=== PATIENT | male | born 1970 | race Caucasian/White ===

== ENCOUNTER 2024-02-25 09:36 | Emergency (ER) | payer BC, OTHER ==
[2024-02-25 10:59] VITALS: BP 137/85; PULSE 84
== END 2024-02-25 10:57 | disposition home or self-care (01) ==
LOC: JD.ED 09:36
DX: K42.0 Umbilical hernia with obstruction, without gangrene (principal)
CPT/HCPCS: 99283

== ENCOUNTER 2024-02-26 10:18 | Inpatient (IN) | payer BC ==
[2024-02-26] MEDS ORDERED: Naloxone 0.4 MG/ML SDV IVPUSH PRN (11:31)
[2024-02-26] MEDS ORDERED: Iopamidol 755 Mg/ML 100 ML Bottle IVPUSH ONE ×2 (11:37→11:38)
[2024-02-26] MEDS ORDERED: Sodium Chloride 0.9% 100 ML IV SCH (11:45)
[2024-02-26] MEDS: Iopamidol 612 MG/ML 100 ML Bottle IVPUSH ONE (11:48)
[2024-02-26] MEDS: Sodium Chloride 0.9% 10 ML Syringe FLUSH PRN ×3 (11:48→14:00)
[2024-02-26] MEDS: Lactated Ringers 1,000 ML IV ONE (12:28)
[2024-02-26] MEDS: Ondansetron 4 MG/2 ML SDV IVPUSH ONE (12:29)
[2024-02-26] MEDS: fentaNYL 100 MCG/2 ML SDV IVPUSH ONE (12:29)
[2024-02-26 12:30] LABS: BASOPHILS PERCENT AUTO 0.2 % (0.0-1.0); EOSINOPHILS ABSOLUTE AUTO 0.1 K/mm3 (0.0-0.4); EOSINOPHILS PERCENT AUTO 0.5 % (0.0-6.0); HEMATOCRIT 52.7 % (42.0-52.0); HEMOGLOBIN 18.1 gm/dl (14.0-18.0); IMMATURE GRAN ABSOLUTE AUTO 0.03 K/mm3 (0.00-0.05); IMMATURE GRAN PERCENT AUTO 0.3 % (0.0-0.4); LYMPHOCYTES PERCENT AUTO 18.2 % (24.0-44.0); MEAN CORPUSCULAR HGB CONC 34.3 g/dl (32.0-36.0); MEAN CORPUSCULAR VOLUME 90.2 fl (83.0-99.0); MEAN PLATELET VOLUME 9.3 fl (9.4-12.4); NEUTROPHILS PERCENT AUTO 71.8 % (41.0-71.0); PLATELET COUNT,PLT 246 K/mm3 (150-400); RED BLOOD CELL COUNT 5.84 M/mm3 (4.52-5.90); WHITE BLOOD CELL COUNT,WBC 11.08 K/mm3 (3.9-11.3)
[2024-02-26 13:02] LABS: LACTIC ACID 1.3 mmol/L (0.4-2.0)
[2024-02-26 13:09] LABS: A/G RATIO 0.9 (1-2); ALBUMIN 3.9 g/dl (3.4-5.0); ANION GAP 14.4 (5-15); BILIRUBIN TOTAL 0.9 mg/dL (0.2-1.0); CALCIUM 9.1 mg/dL (8.5-10.1); CREATININE 1.5 mg/dL (0.7-1.3); EST CRCL DRUG DOSING (CG) 59.48 mL/min; POTASSIUM,K 3.4 mEq/L (3.5-5.1); PROTEIN TOTAL,TP 8.2 g/dl (6.4-8.2)
[2024-02-26 13:42] LABS: APPEARANCE,URINE CLEAR (Clear); BILIRUBIN,URINE NEGATIVE (Negative); COLOR,URINE YELLOW (Yellow); GLUCOSE,URINE NEGATIVE (Negative); KETONES,URINE NEGATIVE (Negative); LEUKOCYTE ESTERASE,URINE NEGATIVE (Negative); NITRITE,URINE NEGATIVE (Negative); OCCULT BLOOD,URINE TRACE-INTACT (Negative); PROTEIN,URINE TRACE (Negative)
[2024-02-26] MEDS ORDERED: Sodium Chloride 0.9% 1,000 ML IV SCH ×2 (13:45→20:45)
[2024-02-26] MEDS: Benzocaine 20% Topical Spray UD MUCMEM ONE (13:58)
[2024-02-26] MEDS: Sodium Chloride 0.9% 1,000 ML IV SCH ×2 (13:59)
[2024-02-26 14:01] LABS: BACTERIA,URINE RARE /hpf (FEW); MUCUS,URINE NOT SEEN /hpf (FEW); RBC,URINE 0-5 /hpf (0-5); SQUAMOUS EPITHELIAL CELLS,UR 0-5 /hpf (0-5); WBC,URINE 0-5 /hpf (0-5)
[2024-02-26] MEDS ORDERED: Lidocaine 2% 20 ML MDV ONE (14:14)
[2024-02-26] MEDS ORDERED: Ketorolac 15 MG/ML SDV ONE ×2 (14:28→20:35)
[2024-02-26] MEDS ORDERED: Succinylcholine 200 MG/10 ML MDV ONE (14:28)
[2024-02-26] MEDS ORDERED: Ondansetron 4 MG/2 ML SDV ONE (14:28)
[2024-02-26] MEDS ORDERED: Lidocaine 1% 5 ML VIAL ONE (14:28)
[2024-02-26] MEDS ORDERED: Rocuronium 50 MG/5 ML Vial ONE ×3 (14:28→17:36)
[2024-02-26] MEDS ORDERED: fentaNYL 100 MCG/2 ML SDV ONE (14:30)
[2024-02-26] MEDS ORDERED: Propofol 200 MG/20 ML SDV ONE (14:31)
[2024-02-26] MEDS ORDERED: Midazolam 1 MG/ML 2 ML SDV ONE (14:36)
[2024-02-26] MEDS ORDERED: ceFAZolin 2 GM Vial ONE (15:15)
[2024-02-26] MEDS ORDERED: fentaNYL 250 MCG/5 ML SDV ONE ×2 (15:22→17:14)
[2024-02-26] MEDS ORDERED: HYDROmorphone 0.5 MG/0.5 ML Syringe ONE ×4 (15:24→16:40)
[2024-02-26] MEDS ORDERED: dexmedeTOMIDine HCl 200 MCG/2 ML SDV ONE (15:41)
[2024-02-26] MEDS: Ropivacaine 0.5% 5 MG/ML 30 ML SDV ONE (16:00)
[2024-02-26] MEDS ORDERED: Lactated Ringers 1,000 ML ONE ×3 (17:45→20:38)
[2024-02-26] MEDS ORDERED: Sugammadex Sodium 200 MG/2 ML VIAL IV ONE (19:06)
[2024-02-26] MEDS ORDERED: HYDROmorphone 0.5 MG/0.5 ML Syringe IVPUSH PRN (20:51)
[2024-02-26] MEDS: fentaNYL 100 MCG/2 ML SDV IVPUSH PRN (21:05)
[2024-02-26] MEDS ORDERED: Furosemide 40 MG/4 ML VIAL IVPUSH SCH (23:00)
[2024-02-26] MEDS: Albumin 25% 25 GM in Premix Bag 1 BAG IV SCH (23:01)
[2024-02-26] MEDS: Pantoprazole 40 MG in Sodium Chloride 0.9% 100 ML IV SCH (23:01)
[2024-02-26] MEDS: Ondansetron 4 MG/2 ML SDV IVPUSH PRN (23:59)
[2024-02-26] MEDS: Ketorolac 30 MG/ML SDV IVPUSH PRN (23:59)
[2024-02-26] MEDS: Pantoprazole 40 MG Vial IV SCH (23:59)
[2024-02-27] MEDS: Albumin 25% 25 GM in Premix Bag 1 BAG IV SCH (00:01)
[2024-02-27] MEDS: Furosemide 20 MG/2 ML VIAL IVPUSH SCH (00:01)
[2024-02-27] MEDS: Heparin Sodium 5,000 Units/ML Vial SUBCUT SCH (00:13)
[2024-02-27] MEDS: Sodium Chloride 0.9% 1,000 ML IV SCH (01:09)
[2024-02-27] MEDS: Piperacillin/Tazobactam 4.5 GM in Sodium Chloride 0.9% 100 ML IV SCH (01:09)
[2024-02-27 04:52] LABS: BASOPHILS ABSOLUTE AUTO 0.1 K/mm3 (0.0-0.2); BASOPHILS PERCENT AUTO 0.6 % (0.0-1.0); EOSINOPHILS PERCENT AUTO 0.1 % (0.0-6.0); HEMATOCRIT 45.8 % (42.0-52.0); IMMATURE GRAN ABSOLUTE AUTO 0.02 K/mm3 (0.00-0.05); IMMATURE GRAN PERCENT AUTO 0.2 % (0.0-0.4); LYMPHOCYTES ABSOLUTE AUTO 0.8 K/mm3 (1.0-4.8); LYMPHOCYTES PERCENT AUTO 9.4 % (24.0-44.0); MEAN CORPUSCULAR HEMOGLOBIN 30.3 pg (28.0-32.0); MEAN CORPUSCULAR HGB CONC 32.8 g/dl (32.0-36.0); MEAN CORPUSCULAR VOLUME 92.5 fl (83.0-99.0); MEAN PLATELET VOLUME 9.4 fl (9.4-12.4); MONOCYTES ABSOLUTE AUTO 0.6 K/mm3 (0.0-0.8); MONOCYTES PERCENT AUTO 6.9 % (0.0-8.0); NEUTROPHILS ABSOLUTE AUTO 7.3 K/mm3 (1.8-7.7); NEUTROPHILS PERCENT AUTO 82.8 % (41.0-71.0); PLATELET COUNT,PLT 180 K/mm3 (150-400); RED BLOOD CELL COUNT 4.95 M/mm3 (4.52-5.90); WHITE BLOOD CELL COUNT,WBC 8.86 K/mm3 (3.9-11.3)
[2024-02-27 05:45] LABS: ANION GAP 12.8 (5-15); BUN/CREATININE RATIO 16.7 (14-18); CREATININE 1.5 mg/dL (0.7-1.3); EST CRCL DRUG DOSING (CG) 59.48 mL/min; MAGNESIUM 1.7 mg/dL (1.8-2.4); PHOSPHORUS 4.3 mg/dL (2.6-4.7); POTASSIUM,K 3.8 mEq/L (3.5-5.1)
[2024-02-27 06:01] LABS: CALCIUM 7.6 mg/dL (8.5-10.1)
[2024-02-27 06:49] LABS: SLIDE REVIEW ABNORMAL SMEAR
[2024-02-27] MEDS ORDERED: Albumin 25% 50 GM in Premix Bag 1 BAG IV SCH (09:13)
[2024-02-27] MEDS: AA 4.25%/D5W/Calcium/Lytes 1,000 ML IV SCH (11:50)
[2024-02-27] MEDS: Bisacodyl 10 MG Supp RECTAL PRN (12:00)
[2024-02-27] MEDS ORDERED: Calcium Gluconate 10% 1 GM/10 ML SDV IV ONE (12:00)
[2024-02-27] MEDS: AA 5%/Calcium/D20W/Lytes 1,000 ML IV SCH (12:49)
[2024-02-27] MEDS ORDERED: Magnesium Sulfate (4.06 MEQ/ML) 5 GM/10 ML SDV IV ONE (13:00)
[2024-02-27] MEDS: Magnesium Sulfate/Water 2 GM in Premix Bag 1 BAG IV ONE (14:42)
[2024-02-27] MEDS: Calcium Gluconate 1 GM in Sodium Chloride 0.9% 100 ML IV ONE (14:42)
[2024-02-27] MEDS: Acetaminophen 325 MG/10.15 ML PO PRN (14:53)
[2024-02-27] MEDS: Albumin 25% 50 GM in Premix Bag 1 BAG IV SCH (17:06)
[2024-02-27] MEDS: Misoprostol 200 MCG Tab PO SCH (21:24)
[2024-02-27] MEDS: Albumin 25% 200 ML ONE (21:25)
[2024-02-28] MEDS: HYDROmorphone 0.5 MG/0.5 ML Syringe IVPUSH PRN (01:33)
[2024-02-28 05:52] LABS: BASOPHILS PERCENT AUTO 0.3 % (0.0-1.0); EOSINOPHILS PERCENT AUTO 0.5 % (0.0-6.0); HEMATOCRIT 34.9 % (42.0-52.0); HEMOGLOBIN 11.8 gm/dl (14.0-18.0); IMMATURE GRAN ABSOLUTE AUTO 0.02 K/mm3 (0.00-0.05); IMMATURE GRAN PERCENT AUTO 0.3 % (0.0-0.4); LYMPHOCYTES ABSOLUTE AUTO 0.8 K/mm3 (1.0-4.8); LYMPHOCYTES PERCENT AUTO 9.7 % (24.0-44.0); MEAN CORPUSCULAR HEMOGLOBIN 31.2 pg (28.0-32.0); MEAN CORPUSCULAR HGB CONC 33.8 g/dl (32.0-36.0); MEAN CORPUSCULAR VOLUME 92.3 fl (83.0-99.0); MEAN PLATELET VOLUME 9.4 fl (9.4-12.4); MONOCYTES ABSOLUTE AUTO 0.3 K/mm3 (0.0-0.8); MONOCYTES PERCENT AUTO 3.7 % (0.0-8.0); NEUTROPHILS ABSOLUTE AUTO 6.7 K/mm3 (1.8-7.7); NEUTROPHILS PERCENT AUTO 85.5 % (41.0-71.0); PLATELET COUNT,PLT 137 K/mm3 (150-400); RED BLOOD CELL COUNT 3.78 M/mm3 (4.52-5.90); WHITE BLOOD CELL COUNT,WBC 7.84 K/mm3 (3.9-11.3)
[2024-02-28 06:06] LABS: ANION GAP 12.2 (5-15); BUN/CREATININE RATIO 18.5 (14-18); CALCIUM 8.4 mg/dL (8.5-10.1); CREATININE 1.3 mg/dL (0.7-1.3); EST CRCL DRUG DOSING (CG) 68.63 mL/min; MAGNESIUM 2.7 mg/dL (1.8-2.4); PHOSPHORUS 1.6 mg/dL (2.6-4.7); POTASSIUM,K 3.2 mEq/L (3.5-5.1)
[2024-02-28] MEDS: Sodium Chloride 0.9% 1,000 ML IV SCH (06:37)
[2024-02-28] MEDS: Potassium Phosphates 30 MMOLE in Sodium Chloride 0.9% 250 ML IV ONE (11:12)
[2024-02-29] MEDS: Sodium Chloride 0.9% 1,000 ML IV SCH (04:47)
[2024-02-29 04:51] LABS: BASOPHILS PERCENT AUTO 0.1 % (0.0-1.0); EOSINOPHILS ABSOLUTE AUTO 0.3 K/mm3 (0.0-0.4); EOSINOPHILS PERCENT AUTO 3.8 % (0.0-6.0); HEMATOCRIT 32.2 % (42.0-52.0); HEMOGLOBIN 10.3 gm/dl (14.0-18.0); IMMATURE GRAN ABSOLUTE AUTO 0.05 K/mm3 (0.00-0.05); IMMATURE GRAN PERCENT AUTO 0.7 % (0.0-0.4); LYMPHOCYTES ABSOLUTE AUTO 0.9 K/mm3 (1.0-4.8); LYMPHOCYTES PERCENT AUTO 13.2 % (24.0-44.0); MEAN CORPUSCULAR HEMOGLOBIN 30.1 pg (28.0-32.0); MEAN CORPUSCULAR VOLUME 94.2 fl (83.0-99.0); MEAN PLATELET VOLUME 9.5 fl (9.4-12.4); MONOCYTES ABSOLUTE AUTO 0.3 K/mm3 (0.0-0.8); MONOCYTES PERCENT AUTO 4.8 % (0.0-8.0); NEUTROPHILS ABSOLUTE AUTO 5.5 K/mm3 (1.8-7.7); NEUTROPHILS PERCENT AUTO 77.4 % (41.0-71.0); PLATELET COUNT,PLT 131 K/mm3 (150-400); RED BLOOD CELL COUNT 3.42 M/mm3 (4.52-5.90); WHITE BLOOD CELL COUNT,WBC 7.11 K/mm3 (3.9-11.3)
[2024-02-29 05:24] LABS: ANION GAP 11.2 (5-15); BUN/CREATININE RATIO 18.3 (14-18); CALCIUM 8.8 mg/dL (8.5-10.1); CREATININE 1.2 mg/dL (0.7-1.3); EST CRCL DRUG DOSING (CG) 74.35 mL/min; MAGNESIUM 2.4 mg/dL (1.8-2.4); PHOSPHORUS 1.6 mg/dL (2.6-4.7); POTASSIUM,K 3.2 mEq/L (3.5-5.1)
[2024-02-29] MEDS ORDERED: Non-Formulary Medication 1 Each PO SCH ×2 (07:00→09:00)
[2024-02-29] MEDS: Ascorbic Acid 500 MG Tab PO SCH (08:58)
[2024-02-29] MEDS: ARGININE 500 MG PO SCH (08:59)
[2024-02-29] MEDS: Cholecalciferol (Vitamin D3) 5,000 UNIT Cap PO SCH (08:59)
[2024-02-29] MEDS: Zinc Sulfate 220 MG Cap PO SCH (08:59)
[2024-02-29] MEDS ORDERED: Sodium Chloride 0.9% 1,000 ML IV SCH (10:00)
[2024-02-29] MEDS: Anastrozole 1 MG Tab PO SCH (10:10)
[2024-02-29] MEDS: TESTOSTERONE CYPIONATE IM SCH (10:13)
[2024-02-29] MEDS: Potassium Phosphates 30 MMOLE in Sodium Chloride 0.9% 500 ML IV ONE (10:27)
[2024-02-29] MEDS: Testosterone Cypionate 200 MG/ML MDV IM SCH (11:52)
[2024-03-01] MEDS: Sodium Phosphate 30 MMOLE in Sodium Chloride 0.9% 250 ML IV ONE (00:24)
[2024-03-01 04:57] LABS: BASOPHILS PERCENT AUTO 0.3 % (0.0-1.0); EOSINOPHILS ABSOLUTE AUTO 0.5 K/mm3 (0.0-0.4); EOSINOPHILS PERCENT AUTO 7.1 % (0.0-6.0); HEMATOCRIT 29.9 % (42.0-52.0); HEMOGLOBIN 9.7 gm/dl (14.0-18.0); IMMATURE GRAN ABSOLUTE AUTO 0.02 K/mm3 (0.00-0.05); IMMATURE GRAN PERCENT AUTO 0.3 % (0.0-0.4); LYMPHOCYTES PERCENT AUTO 15.1 % (24.0-44.0); MEAN CORPUSCULAR HGB CONC 32.4 g/dl (32.0-36.0); MEAN CORPUSCULAR VOLUME 92.6 fl (83.0-99.0); MEAN PLATELET VOLUME 9.4 fl (9.4-12.4); MONOCYTES ABSOLUTE AUTO 0.5 K/mm3 (0.0-0.8); MONOCYTES PERCENT AUTO 8.4 % (0.0-8.0); NEUTROPHILS ABSOLUTE AUTO 4.3 K/mm3 (1.8-7.7); NEUTROPHILS PERCENT AUTO 68.8 % (41.0-71.0); PLATELET COUNT,PLT 160 K/mm3 (150-400); RED BLOOD CELL COUNT 3.23 M/mm3 (4.52-5.90); WHITE BLOOD CELL COUNT,WBC 6.31 K/mm3 (3.9-11.3)
[2024-03-01 05:25] LABS: ANION GAP 12.8 (5-15); BUN/CREATININE RATIO 14.6 (14-18); CALCIUM 8.4 mg/dL (8.5-10.1); CREATININE 1.3 mg/dL (0.7-1.3); EST CRCL DRUG DOSING (CG) 68.63 mL/min; MAGNESIUM 2.1 mg/dL (1.8-2.4); PHOSPHORUS 2.8 mg/dL (2.6-4.7); POTASSIUM,K 2.8 mEq/L (3.5-5.1)
[2024-03-01] MEDS: Potassium Phosphates 30 MMOLE in Sodium Chloride 0.9% 500 ML IV ONE (13:01)
[2024-03-01] MEDS: Phosphorus #1 250 MG Tab PO SCH (21:23)
[2024-03-01] MEDS: Fish Oil/Omega-3 Fatty Acids 1 Gm Cap PO SCH (21:24)
[2024-03-02 05:47] LABS: BASOPHILS PERCENT AUTO 0.3 % (0.0-1.0); EOSINOPHILS ABSOLUTE AUTO 0.4 K/mm3 (0.0-0.4); EOSINOPHILS PERCENT AUTO 5.9 % (0.0-6.0); HEMATOCRIT 33.7 % (42.0-52.0); IMMATURE GRAN ABSOLUTE AUTO 0.05 K/mm3 (0.00-0.05); IMMATURE GRAN PERCENT AUTO 0.7 % (0.0-0.4); LYMPHOCYTES ABSOLUTE AUTO 0.8 K/mm3 (1.0-4.8); LYMPHOCYTES PERCENT AUTO 10.3 % (24.0-44.0); MEAN CORPUSCULAR HEMOGLOBIN 30.5 pg (28.0-32.0); MEAN CORPUSCULAR HGB CONC 33.5 g/dl (32.0-36.0); MEAN CORPUSCULAR VOLUME 91.1 fl (83.0-99.0); MEAN PLATELET VOLUME 9.1 fl (9.4-12.4); MONOCYTES ABSOLUTE AUTO 1.1 K/mm3 (0.0-0.8); NEUTROPHILS ABSOLUTE AUTO 5.2 K/mm3 (1.8-7.7); NEUTROPHILS PERCENT AUTO 68.8 % (41.0-71.0); PLATELET COUNT,PLT 203 K/mm3 (150-400); WHITE BLOOD CELL COUNT,WBC 7.51 K/mm3 (3.9-11.3)
[2024-03-02 05:56] LABS: ANION GAP 16.3 (5-15); BUN/CREATININE RATIO 20.9 (14-18); CREATININE 1.1 mg/dL (0.7-1.3); EST CRCL DRUG DOSING (CG) 81.11 mL/min; MAGNESIUM 2.1 mg/dL (1.8-2.4); PHOSPHORUS 2.9 mg/dL (2.6-4.7); POTASSIUM,K 3.3 mEq/L (3.5-5.1)
[2024-03-02 06:00] LABS: HEMOGLOBIN 11.3 gm/dl (14.0-18.0)
[2024-03-02] MEDS: Pantoprazole 40 MG Tab.CR PO SCH (09:57)
[2024-03-02] MEDS: Famotidine 20 MG Tab PO SCH (10:00)
[2024-03-02] MEDS: Potassium Phosphates 30 MMOLE in Sodium Chloride 0.9% 500 ML IV ONE (13:28)
[2024-03-02] MEDS: diphenhydrAMINE 50 MG/ML SDV IVPUSH PRN (20:57)
[2024-03-02] MEDS: Sodium Chloride 0.9% 1,000 ML IV SCH (21:00)
[2024-03-03 05:31] LABS: BASOPHILS PERCENT AUTO 0.2 % (0.0-1.0); EOSINOPHILS ABSOLUTE AUTO 0.6 K/mm3 (0.0-0.4); EOSINOPHILS PERCENT AUTO 6.8 % (0.0-6.0); HEMATOCRIT 32.2 % (42.0-52.0); HEMOGLOBIN 10.9 gm/dl (14.0-18.0); IMMATURE GRAN ABSOLUTE AUTO 0.05 K/mm3 (0.00-0.05); IMMATURE GRAN PERCENT AUTO 0.6 % (0.0-0.4); LYMPHOCYTES ABSOLUTE AUTO 1.5 K/mm3 (1.0-4.8); LYMPHOCYTES PERCENT AUTO 18.6 % (24.0-44.0); MEAN CORPUSCULAR HEMOGLOBIN 30.6 pg (28.0-32.0); MEAN CORPUSCULAR HGB CONC 33.9 g/dl (32.0-36.0); MEAN CORPUSCULAR VOLUME 90.4 fl (83.0-99.0); MEAN PLATELET VOLUME 8.9 fl (9.4-12.4); MONOCYTES ABSOLUTE AUTO 1.1 K/mm3 (0.0-0.8); NEUTROPHILS ABSOLUTE AUTO 4.9 K/mm3 (1.8-7.7); NEUTROPHILS PERCENT AUTO 60.8 % (41.0-71.0); PLATELET COUNT,PLT 236 K/mm3 (150-400); RED BLOOD CELL COUNT 3.56 M/mm3 (4.52-5.90); WHITE BLOOD CELL COUNT,WBC 8.05 K/mm3 (3.9-11.3)
[2024-03-03 06:14] LABS: ANION GAP 14.3 (5-15); CALCIUM 8.6 mg/dL (8.5-10.1); EST CRCL DRUG DOSING (CG) 89.22 mL/min; PHOSPHORUS 2.6 mg/dL (2.6-4.7); POTASSIUM,K 3.3 mEq/L (3.5-5.1)
[2024-03-03] MEDS ORDERED: Famotidine 20 MG Tab PO SCH (09:00)
[2024-03-03] MEDS: Potassium Chloride 10 MEQ in Premix Bag 1 BAG IV SCH ×2 (11:01→13:13)
[2024-03-03] MEDS: Albumin 25% 12.5 GM/50 ML BAG IV ONE (16:34)
[2024-03-04 05:49] LABS: HEMATOCRIT 32.3 % (42.0-52.0); HEMOGLOBIN 10.8 gm/dl (14.0-18.0); MEAN CORPUSCULAR HEMOGLOBIN 30.7 pg (28.0-32.0); MEAN CORPUSCULAR HGB CONC 33.4 g/dl (32.0-36.0); MEAN CORPUSCULAR VOLUME 91.8 fl (83.0-99.0); MEAN PLATELET VOLUME 9.1 fl (9.4-12.4); PLATELET COUNT,PLT 280 K/mm3 (150-400); RED BLOOD CELL COUNT 3.52 M/mm3 (4.52-5.90); WHITE BLOOD CELL COUNT,WBC 7.13 K/mm3 (3.9-11.3)
[2024-03-04 05:52] LABS: ANION GAP 15.7 (5-15); CALCIUM 8.6 mg/dL (8.5-10.1); EST CRCL DRUG DOSING (CG) 89.22 mL/min; MAGNESIUM 2.1 mg/dL (1.8-2.4); PHOSPHORUS 2.8 mg/dL (2.6-4.7); POTASSIUM,K 3.7 mEq/L (3.5-5.1)
[2024-03-04] MEDS ORDERED: Albumin 25% 12.5 GM/50 ML BAG IV ONE (09:00)
[2024-03-04] MEDS: TESTOSTERONE CYPIONATE IM SCH (10:21)
[2024-03-04] MEDS: Sodium Phosphate 30 MMOLE in Sodium Chloride 0.9% 250 ML IV ONE (11:43)
[2024-03-04] MEDS ORDERED: Acetaminophen Soln 650 MG/20.3 ML UD Cup PO PRN (12:16)
[2024-03-04] MEDS ORDERED: Ketorolac 30 MG/ML SDV IVPUSH PRN (12:19)
[2024-03-04] MEDS: AA 4.25%/D5W/Calcium/Lytes 1,000 ML IV SCH (16:16)
[2024-03-04] MEDS: Acetaminophen 325 MG Tab PO PRN (20:09)
[2024-03-05 04:43] LABS: BASOPHILS PERCENT AUTO 0.3 % (0.0-1.0); EOSINOPHILS ABSOLUTE AUTO 0.3 K/mm3 (0.0-0.4); EOSINOPHILS PERCENT AUTO 2.4 % (0.0-6.0); IMMATURE GRAN ABSOLUTE AUTO 0.05 K/mm3 (0.00-0.05); IMMATURE GRAN PERCENT AUTO 0.5 % (0.0-0.4); LYMPHOCYTES ABSOLUTE AUTO 1.7 K/mm3 (1.0-4.8); LYMPHOCYTES PERCENT AUTO 15.1 % (24.0-44.0); MEAN CORPUSCULAR HEMOGLOBIN 30.6 pg (28.0-32.0); MEAN CORPUSCULAR HGB CONC 33.3 g/dl (32.0-36.0); MEAN CORPUSCULAR VOLUME 91.7 fl (83.0-99.0); MEAN PLATELET VOLUME 9.2 fl (9.4-12.4); MONOCYTES ABSOLUTE AUTO 0.8 K/mm3 (0.0-0.8); MONOCYTES PERCENT AUTO 7.1 % (0.0-8.0); NEUTROPHILS ABSOLUTE AUTO 8.2 K/mm3 (1.8-7.7); NEUTROPHILS PERCENT AUTO 74.6 % (41.0-71.0); PLATELET COUNT,PLT 306 K/mm3 (150-400); WHITE BLOOD CELL COUNT,WBC 10.98 K/mm3 (3.9-11.3)
[2024-03-05 05:11] LABS: ANION GAP 12.5 (5-15); CALCIUM 8.5 mg/dL (8.5-10.1); EST CRCL DRUG DOSING (CG) 89.22 mL/min; PHOSPHORUS 3.2 mg/dL (2.6-4.7); POTASSIUM,K 3.5 mEq/L (3.5-5.1)
[2024-03-05] MEDS: Ketorolac 30 MG/ML SDV IVPUSH ONE (10:10)
[2024-03-05] MEDS: Diatrizoate Meglumine/Diatrizoate Sodium 37% 120 ML Bottle PO ONE (10:30)
[2024-03-05] MEDS ORDERED: traMADol 50 MG Tab PO PRN (11:58)
[2024-03-05] MEDS: Iopamidol 612 MG/ML 100 ML Bottle IVPUSH ONE (14:13)
[2024-03-05] MEDS ORDERED: Ropivacaine 0.5% 5 MG/ML 30 ML SDV ONE (15:49)
[2024-03-05] MEDS ORDERED: EPINEPHrine 1 MG/ML SDV ONE (15:49)
[2024-03-05] MEDS ORDERED: Lidocaine 2% 20 ML MDV ONE (15:49)
[2024-03-05] MEDS ORDERED: fentaNYL 250 MCG/5 ML SDV ONE (15:53)
[2024-03-05] MEDS ORDERED: Midazolam 1 MG/ML 2 ML SDV ONE (15:53)
[2024-03-05] MEDS ORDERED: Propofol 200 MG/20 ML SDV ONE (15:53)
[2024-03-05] MEDS ORDERED: Succinylcholine 200 MG/10 ML MDV ONE (15:54)
[2024-03-05] MEDS ORDERED: Ondansetron 4 MG/2 ML SDV ONE (15:54)
[2024-03-05] MEDS ORDERED: Ketorolac 30 MG/ML SDV ONE (15:54)
[2024-03-05] MEDS ORDERED: Rocuronium 50 MG/5 ML Vial ONE ×3 (15:54→19:26)
[2024-03-05] MEDS ORDERED: dexmedeTOMIDine HCl 200 MCG/2 ML SDV ONE (17:27)
[2024-03-05] MEDS ORDERED: Esmolol 100 MG/10 ML SDV ONE (17:44)
[2024-03-05] MEDS ORDERED: HYDROmorphone 0.5 MG/0.5 ML Syringe ONE ×6 (17:45→20:30)
[2024-03-05] MEDS ORDERED: Lactated Ringers 1,000 ML ONE ×5 (17:46→22:20)
[2024-03-05] MEDS ORDERED: fentaNYL 100 MCG/2 ML SDV ONE ×4 (18:16→22:19)
[2024-03-05] MEDS: Piperacillin/Tazobactam 4.5 GM in Sodium Chloride 0.9% 100 ML IV ONE (19:51)
[2024-03-05] MEDS ORDERED: HYDROmorphone 0.5 MG/0.5 ML Syringe IVPUSH PRN (22:39)
[2024-03-05] MEDS ORDERED: fentaNYL 100 MCG/2 ML SDV IVPUSH PRN (22:39)
[2024-03-05] MEDS: HYDROmorphone 0.5 MG/0.5 ML Syringe IVPUSH PRN (23:38)
[2024-03-05] MEDS: Piperacillin/Tazobactam 4.5 GM in Sodium Chloride 0.9% 100 ML IV SCH (23:54)
[2024-03-06] MEDS: traMADol 50 MG Tab PO PRN (00:18)
[2024-03-06] MEDS: AA 4.25%/D5W/Calcium/Lytes 1,000 ML IV SCH (03:20)
[2024-03-06] MEDS: Piperacillin/Tazobactam 4.5 GM in Sodium Chloride 0.9% 100 ML IV SCH (03:20)
[2024-03-06] MEDS: Acetaminophen Soln 650 MG/20.3 ML UD Cup PO PRN (04:41)
[2024-03-06 04:45] LABS: BASOPHILS ABSOLUTE AUTO 0.1 K/mm3 (0.0-0.2); BASOPHILS PERCENT AUTO 0.3 % (0.0-1.0); HEMATOCRIT 36.1 % (42.0-52.0); IMMATURE GRAN ABSOLUTE AUTO 0.16 K/mm3 (0.00-0.05); IMMATURE GRAN PERCENT AUTO 0.7 % (0.0-0.4); LYMPHOCYTES ABSOLUTE AUTO 1.3 K/mm3 (1.0-4.8); LYMPHOCYTES PERCENT AUTO 5.6 % (24.0-44.0); MEAN CORPUSCULAR HEMOGLOBIN 30.7 pg (28.0-32.0); MEAN CORPUSCULAR HGB CONC 33.2 g/dl (32.0-36.0); MEAN CORPUSCULAR VOLUME 92.3 fl (83.0-99.0); MEAN PLATELET VOLUME 9.1 fl (9.4-12.4); MONOCYTES ABSOLUTE AUTO 0.7 K/mm3 (0.0-0.8); MONOCYTES PERCENT AUTO 3.2 % (0.0-8.0); NEUTROPHILS ABSOLUTE AUTO 20.8 K/mm3 (1.8-7.7); NEUTROPHILS PERCENT AUTO 90.2 % (41.0-71.0); PLATELET COUNT,PLT 356 K/mm3 (150-400); RED BLOOD CELL COUNT 3.91 M/mm3 (4.52-5.90); WHITE BLOOD CELL COUNT,WBC 23.11 K/mm3 (3.9-11.3)
[2024-03-06 05:03] LABS: ANION GAP 12.1 (5-15); BUN/CREATININE RATIO 16.7 (14-18); CALCIUM 7.8 mg/dL (8.5-10.1); CREATININE 1.2 mg/dL (0.7-1.3); EST CRCL DRUG DOSING (CG) 74.35 mL/min; MAGNESIUM 1.7 mg/dL (1.8-2.4); POTASSIUM,K 4.1 mEq/L (3.5-5.1)
[2024-03-06] MEDS: Sodium Chloride 0.9% 500 ML IV ONE ×2 (05:47→09:38)
[2024-03-06 05:58] LABS: SLIDE REVIEW ABNORMAL SMEAR
[2024-03-06] MEDS ORDERED: Calcium Gluconate 10% 1 GM/10 ML SDV IV ONE (09:30)
[2024-03-06] MEDS: Sodium Chloride 0.9% 1,000 ML IV SCH ×2 (10:18→20:59)
[2024-03-06] MEDS ORDERED: Calcium Gluconate 1 GM in Sodium Chloride 0.9% 100 ML IV ONE (10:30)
[2024-03-06] MEDS ORDERED: Magnesium Sulfate (4.06 MEQ/ML) 5 GM/10 ML SDV IV ONE (11:30)
[2024-03-06] MEDS: Calcium Gluconate 1 GM in Sodium Chloride 0.9% 100 ML IV ONE (12:36)
[2024-03-06] MEDS: HYDROmorphone 0.5 MG/0.5 ML Syringe IVPUSH PRN (12:38)
[2024-03-06] MEDS ORDERED: Sodium Chloride 0.9% 1,000 ML IV SCH ×2 (16:00→22:15)
[2024-03-06] MEDS ORDERED: Benzocaine 20% Dental Gel 30 GM Jar MUCMEM PRN (17:03)
[2024-03-06] MEDS ORDERED: Benzocaine 20% Topical Spray UD MUCMEM PRN (17:30)
[2024-03-06] MEDS ORDERED: HYDROmorphone 0.5 MG/0.5 ML Syringe IVPUSH PRN (18:27)
[2024-03-06] MEDS ORDERED: Furosemide 20 MG/2 ML VIAL IVPUSH SCH (19:00)
[2024-03-06] MEDS: Albumin 25% 12.5 GM/50 ML BAG IV SCH (19:44)
[2024-03-06] MEDS: Ketorolac 30 MG/ML SDV IVPUSH PRN (19:50)
[2024-03-07 04:44] LABS: BASOPHILS PERCENT AUTO 0.1 % (0.0-1.0); EOSINOPHILS ABSOLUTE AUTO 0.3 K/mm3 (0.0-0.4); EOSINOPHILS PERCENT AUTO 1.5 % (0.0-6.0); HEMOGLOBIN 10.3 gm/dl (14.0-18.0); IMMATURE GRAN ABSOLUTE AUTO 0.14 K/mm3 (0.00-0.05); IMMATURE GRAN PERCENT AUTO 0.8 % (0.0-0.4); LYMPHOCYTES ABSOLUTE AUTO 1.2 K/mm3 (1.0-4.8); LYMPHOCYTES PERCENT AUTO 6.4 % (24.0-44.0); MEAN CORPUSCULAR HEMOGLOBIN 30.4 pg (28.0-32.0); MEAN CORPUSCULAR HGB CONC 32.2 g/dl (32.0-36.0); MEAN CORPUSCULAR VOLUME 94.4 fl (83.0-99.0); MEAN PLATELET VOLUME 9.5 fl (9.4-12.4); MONOCYTES ABSOLUTE AUTO 0.9 K/mm3 (0.0-0.8); MONOCYTES PERCENT AUTO 4.8 % (0.0-8.0); NEUTROPHILS ABSOLUTE AUTO 15.4 K/mm3 (1.8-7.7); NEUTROPHILS PERCENT AUTO 86.4 % (41.0-71.0); PLATELET COUNT,PLT 347 K/mm3 (150-400); RED BLOOD CELL COUNT 3.39 M/mm3 (4.52-5.90); WHITE BLOOD CELL COUNT,WBC 17.83 K/mm3 (3.9-11.3)
[2024-03-07 05:09] LABS: ANION GAP 12.1 (5-15); BUN/CREATININE RATIO 14.2 (14-18); CALCIUM 8.1 mg/dL (8.5-10.1); CREATININE 1.2 mg/dL (0.7-1.3); EST CRCL DRUG DOSING (CG) 74.35 mL/min; MAGNESIUM 2.3 mg/dL (1.8-2.4); PHOSPHORUS 2.3 mg/dL (2.6-4.7); POTASSIUM,K 4.1 mEq/L (3.5-5.1)
[2024-03-07] MEDS: Sodium Chloride 0.9% 1,000 ML IV SCH (08:00)
[2024-03-07] MEDS ORDERED: Furosemide 20 MG/2 ML VIAL IVPUSH SCH (09:00)
[2024-03-07] MEDS: Furosemide 20 MG/2 ML VIAL IVPUSH SCH (09:13)
[2024-03-07] MEDS: Calcium Gluconate 1 GM in Sodium Chloride 0.9% 100 ML IV ONE (09:36)
[2024-03-07] MEDS: Sodium Phosphate 30 MMOLE in Sodium Chloride 0.9% 250 ML IV ONE (10:09)
[2024-03-07] MEDS: Sodium Chloride 0.9% 100 ML ONE (16:49)
[2024-03-08] MEDS: Calcium Gluconate 1 GM in Sodium Chloride 0.9% 100 ML IV ONE ×3 (00:28→22:08)
[2024-03-08 04:40] LABS: BASOPHILS PERCENT AUTO 0.2 % (0.0-1.0); EOSINOPHILS ABSOLUTE AUTO 0.4 K/mm3 (0.0-0.4); EOSINOPHILS PERCENT AUTO 3.1 % (0.0-6.0); HEMATOCRIT 29.5 % (42.0-52.0); HEMOGLOBIN 9.4 gm/dl (14.0-18.0); IMMATURE GRAN ABSOLUTE AUTO 0.07 K/mm3 (0.00-0.05); IMMATURE GRAN PERCENT AUTO 0.5 % (0.0-0.4); LYMPHOCYTES ABSOLUTE AUTO 1.1 K/mm3 (1.0-4.8); LYMPHOCYTES PERCENT AUTO 8.4 % (24.0-44.0); MEAN CORPUSCULAR HEMOGLOBIN 29.9 pg (28.0-32.0); MEAN CORPUSCULAR HGB CONC 31.9 g/dl (32.0-36.0); MEAN CORPUSCULAR VOLUME 93.9 fl (83.0-99.0); MEAN PLATELET VOLUME 9.3 fl (9.4-12.4); MONOCYTES ABSOLUTE AUTO 0.8 K/mm3 (0.0-0.8); MONOCYTES PERCENT AUTO 5.9 % (0.0-8.0); NEUTROPHILS ABSOLUTE AUTO 10.8 K/mm3 (1.8-7.7); NEUTROPHILS PERCENT AUTO 81.9 % (41.0-71.0); PLATELET COUNT,PLT 399 K/mm3 (150-400); RED BLOOD CELL COUNT 3.14 M/mm3 (4.52-5.90); WHITE BLOOD CELL COUNT,WBC 13.14 K/mm3 (3.9-11.3)
[2024-03-08 05:54] LABS: ANION GAP 13.7 (5-15); BUN/CREATININE RATIO 11.7 (14-18); CALCIUM 8.6 mg/dL (8.5-10.1); CREATININE 1.2 mg/dL (0.7-1.3); EST CRCL DRUG DOSING (CG) 74.35 mL/min; MAGNESIUM 2.3 mg/dL (1.8-2.4); PHOSPHORUS 3.2 mg/dL (2.6-4.7); POTASSIUM,K 3.7 mEq/L (3.5-5.1)
[2024-03-08] MEDS: Sodium Chloride 0.9% 500 ML ONE (08:28)
[2024-03-08] MEDS: Sodium Chloride 0.9% 250 ML ONE (16:31)
[2024-03-09 05:45] LABS: BASOPHILS PERCENT AUTO 0.3 % (0.0-1.0); EOSINOPHILS ABSOLUTE AUTO 0.4 K/mm3 (0.0-0.4); EOSINOPHILS PERCENT AUTO 3.6 % (0.0-6.0); HEMATOCRIT 30.3 % (42.0-52.0); HEMOGLOBIN 10.1 gm/dl (14.0-18.0); IMMATURE GRAN ABSOLUTE AUTO 0.05 K/mm3 (0.00-0.05); IMMATURE GRAN PERCENT AUTO 0.5 % (0.0-0.4); LYMPHOCYTES ABSOLUTE AUTO 1.3 K/mm3 (1.0-4.8); LYMPHOCYTES PERCENT AUTO 13.2 % (24.0-44.0); MEAN CORPUSCULAR HEMOGLOBIN 30.4 pg (28.0-32.0); MEAN CORPUSCULAR HGB CONC 33.3 g/dl (32.0-36.0); MEAN CORPUSCULAR VOLUME 91.3 fl (83.0-99.0); MEAN PLATELET VOLUME 8.8 fl (9.4-12.4); MONOCYTES ABSOLUTE AUTO 0.8 K/mm3 (0.0-0.8); MONOCYTES PERCENT AUTO 7.6 % (0.0-8.0); NEUTROPHILS ABSOLUTE AUTO 7.4 K/mm3 (1.8-7.7); NEUTROPHILS PERCENT AUTO 74.8 % (41.0-71.0); RED BLOOD CELL COUNT 3.32 M/mm3 (4.52-5.90); WHITE BLOOD CELL COUNT,WBC 9.85 K/mm3 (3.9-11.3)
[2024-03-09 05:49] LABS: PLATELET COUNT,PLT 479 K/mm3 (150-400)
[2024-03-09 06:08] LABS: ANION GAP 12.6 (5-15); BUN/CREATININE RATIO 13.3 (14-18); CALCIUM 8.4 mg/dL (8.5-10.1); CREATININE 0.9 mg/dL (0.7-1.3); EST CRCL DRUG DOSING (CG) 99.14 mL/min; MAGNESIUM 2.1 mg/dL (1.8-2.4); PHOSPHORUS 3.2 mg/dL (2.6-4.7); POTASSIUM,K 3.6 mEq/L (3.5-5.1)
[2024-03-10] MEDS: Calcium Gluconate 1 GM in Sodium Chloride 0.9% 100 ML IV ONE (00:18)
[2024-03-10] MEDS: ARGININE 500 MG PO SCH (08:28)
[2024-03-10] MEDS: Ascorbic Acid 500 MG Tab PO SCH (08:29)
[2024-03-10] MEDS: Cholecalciferol (Vitamin D3) 5,000 UNIT Cap PO SCH (08:29)
[2024-03-10] MEDS: Zinc Sulfate 220 MG Cap PO SCH (08:29)
[2024-03-11] MEDS ORDERED: TESTOSTERONE CYPIONATE IM SCH (09:00)
[2024-03-11] MEDS: Testosterone Cypionate 200 MG/ML MDV IM SCH (09:56)
[2024-03-11] MEDS: AA 4.25%/D5W/Calcium/Lytes 1,000 ML IV SCH (11:07)
[2024-03-11] MEDS: Oxymetazoline 0.05% Nasal Spray 30 ML Bottle ONE (18:15)
[2024-03-11] MEDS: Lidocaine 1% with EPINEPHrine 1:100,000 10 ML MDV INJECT ONE (18:16)
[2024-03-11] MEDS: Lidocaine 1% 10 ML MDV ONE (18:20)
[2024-03-11] MEDS: Sodium Chloride 0.9% 250 ML IV ONE (18:29)
[2024-03-11] MEDS: Sodium Chloride 0.9% 250 ML ONE ×2 (18:30→20:14)
[2024-03-11 18:46] LABS: BASOPHILS PERCENT AUTO 0.4 % (0.0-1.0); EOSINOPHILS ABSOLUTE AUTO 0.4 K/mm3 (0.0-0.4); EOSINOPHILS PERCENT AUTO 3.5 % (0.0-6.0); HEMATOCRIT 32.7 % (42.0-52.0); HEMOGLOBIN 10.6 gm/dl (14.0-18.0); IMMATURE GRAN ABSOLUTE AUTO 0.08 K/mm3 (0.00-0.05); IMMATURE GRAN PERCENT AUTO 0.7 % (0.0-0.4); LYMPHOCYTES ABSOLUTE AUTO 3.1 K/mm3 (1.0-4.8); LYMPHOCYTES PERCENT AUTO 28.5 % (24.0-44.0); MEAN CORPUSCULAR HEMOGLOBIN 30.5 pg (28.0-32.0); MEAN CORPUSCULAR HGB CONC 32.4 g/dl (32.0-36.0); MEAN CORPUSCULAR VOLUME 94.2 fl (83.0-99.0); MEAN PLATELET VOLUME 8.7 fl (9.4-12.4); MONOCYTES ABSOLUTE AUTO 0.8 K/mm3 (0.0-0.8); MONOCYTES PERCENT AUTO 7.6 % (0.0-8.0); NEUTROPHILS ABSOLUTE AUTO 6.5 K/mm3 (1.8-7.7); NEUTROPHILS PERCENT AUTO 59.3 % (41.0-71.0); PLATELET COUNT,PLT 701 K/mm3 (150-400); RED BLOOD CELL COUNT 3.47 M/mm3 (4.52-5.90)
[2024-03-11 18:58] LABS: INR 1.08; PROTHROMBIN TIME 11.4 SECONDS (9.7-12.0)
[2024-03-11] MEDS ORDERED: Sodium Chloride 0.9% 1,000 ML IV SCH (19:00)
[2024-03-11] MEDS ORDERED: propofoL 100 ML IV SCH (20:00)
[2024-03-11] MEDS: propofoL 100 ML ONE (20:18)
[2024-03-11] MEDS: Etomidate 2 MG/ML 20 ML SDV IVPUSH ONE (20:24)
[2024-03-11] MEDS: Succinylcholine 200 MG/10 ML MDV IVPUSH ONE (20:25)
[2024-03-11 20:32] VITALS: BP 185/108; PULSE 130
[2024-03-11] MEDS: fentaNYL 100 MCG/2 ML SDV IVPUSH ONE (20:40)
[2024-03-11] MEDS: Lactated Ringers 1,000 ML ONE (20:56)
[2024-03-11] MEDS: Midazolam 5 MG/ML 10 ML MDV ONE (22:03)
[2024-03-11] MEDS: Norepinephrine 4 MG/4 ML SDV ONE (22:03)
[2024-03-11] MEDS: Midazolam 1 MG/ML 5 ML SDV IVPUSH ONE (22:46)
== END 2024-03-11 21:23 | disposition still patient (30) | DRG 230 ==
LOC: JD.ED 10:18 → JD.SDS 14:20 → JD.MS 20:13 → JD.ICU 03-11 20:13
PROVIDERS: ADMIT Family Medicine; ATTEND Family Medicine
PROC: 02HV33Z Insertion of Infusion Device into Superior Vena Cava, Percutaneous Approach (ICD-10-PCS; 2024-02-26)
PROC: 0D9670Z Drainage of Stomach with Drainage Device, Via Natural or Artificial Opening (ICD-10-PCS; 2024-02-26)
PROC: 0DBA0ZZ Excision of Jejunum, Open Approach (ICD-10-PCS; 2024-02-26)
PROC: 0D980ZZ Drainage of Small Intestine, Open Approach (ICD-10-PCS; 2024-02-26)
PROC: 0DB80ZZ Excision of Small Intestine, Open Approach (ICD-10-PCS; principal; 2024-02-26 14:30)
PROC: 0DN80ZZ Release Small Intestine, Open Approach (ICD-10-PCS; 2024-03-05)
PROC: 0DQU0ZZ Repair Omentum, Open Approach (ICD-10-PCS; 2024-03-05)
PROC: 0D980ZZ Drainage of Small Intestine, Open Approach (ICD-10-PCS; 2024-03-05)
PROC: 093K7ZZ Control Bleeding in Nasal Mucosa and Soft Tissue, Via Natural or Artificial Opening (ICD-10-PCS; 2024-03-11)
DX: K42.0 Umbilical hernia with obstruction, without gangrene (principal); K63.0 Abscess of intestine; E86.0 Dehydration; R04.0 Epistaxis; K56.7 Ileus, unspecified
CPT/HCPCS: 00790; 36415; 36430; 36569; 43752; 71045; 71045-26; 74018; 74018-26; 74019; 74019-26; 74177; 74177-26; 80048; 80053; 81001; 82040; 82947; 83605; 83690; 83735; 84100; 84134; 84270; 84402; 84403; 85025; 85027; 85610; 86850; 86900; 86901; 86922; 87070; 87075; 87205; 87493; 94761; 94762; 96361; 96374; 96375; 97161-GP; 99285; 99285-25; A9270-GY; C1751; C9113; J0171; J0330; J0612; J0690; J1170; J1200; J1644; J1885; J1940; J2001; J2250; J2405; J2543; J2704; J2795; J3010; J3475; J3480; J3490; J7030; J7040; J7050; J7120; P9016; P9047; Q9963; Q9967